=== PATIENT | male | born 1990 | race Caucasian/White ===

== ENCOUNTER → 2018-10-01 12:05 | Outpatient (CLI) | payer BC, SELFPAY ==
--- NOTE | 2018-10-01 | DI.US.S_ITS ---
PROCEDURE: US RENAL COMPLETE INDICATIONS: FREQUENT URINATION TECHNIQUE: Real-time scanning was performed of the kidneys and bladder, with image documentation. COMPARISON: None. FINDINGS: Kidneys: Kidneys are normal in size. Right kidney measures 12.1 cm long; left kidney measures 12.1 cm long. Right renal cortical thickness is 1.1 cm; left renal cortical thickness is 1.6 cm. Renal cortical echotexture is normal. No definite hydronephrosis or nephrolithiasis. No suspicious solid mass lesions. Bladder: Pre-void bladder volume is 540 mL. Post-void residual is 0 mL. Pre-void images demonstrate no intraluminal masses or stones. On pre-void images, neither of the ureteral jets are noted with color Doppler interrogation. (Of note, ureteral jets may not be detectable in up to 25% of cases due to insufficient differences in specific gravity between ureteral and bladder urine). Miscellaneous: No free pelvic fluid. IMPRESSION: No post void residual. Negative for hydronephrosis. No bladder abnormality is seen on these images. Dictated by: Bladimir Bee M.D. on 10/01/2018 at 12:10 Approved by: Bladimir Bee M.D. on 10/01/2018 at 12:11
== END ==
PROVIDERS: Visit Provider Family Medicine
DX: R35.0 Frequency of micturition (principal)
CPT/HCPCS: 76770

== ENCOUNTER → 2023-01-30 10:38 | Outpatient (CLI) | payer BC, SELFPAY ==
[2023-01-30 20:17] LABS: Alanine Aminotransferase 163 IU/L (<50); Albumin 4.3 g/dL (3.5-5.0); Albumin Globulin Ratio 2.2 (1.0-2.8); Alkaline Phosphatase 138 U/L (38-126); Aspartate Aminotransferase 111 IU/L (17-59); BUN Creatinine Ratio 20.8 (6-22); Bilirubin Total 0.5 mg/dL (0.2-1.3); Blood Urea Nitrogen 11 mg/dL (9-20); Calcium 8.7 mg/dL (8.4-10.2); Carbon Dioxide 31 mmol/L (22-32); Chloride 102 mmol/L (98-107); Estimated Glomerular Filt Rate > 60 mL/min (>60); Glucose 99 mg/dL (70-100); HEMOLYSIS < 15 (0-50); Sodium 139 mmol/L (137-145); Total Protein 6.3 g/dL (6.3-8.2)
[2023-01-30 20:23] LABS: Add Manual Diff / Slide Review NO; Basophils Absolute Auto 0 /uL (0-100); Basophils Percent Auto 0.5 % (0-2); Eosinophils Absolute Auto 0 /uL (0-450); Eosinophils Percent Auto 1.3 % (2-4); Hematocrit 40.8 % (41-53); Hemoglobin 14.4 g/dL (13.5-17.5); Lymphocytes Absolute Auto 700 /uL (1100-4500); Lymphocytes Percent Auto 19.3 % (25-40); Mean Corpuscular HGB Conc 35.4 % (30-36); Mean Corpuscular Hemoglobin 30.4 PG (26-34); Mean Corpuscular Volume 86.1 fL (80-100); Monocytes Absolute Auto 400 /uL (0-900); Monocytes Percent Auto 10.7 % (3-14); Neutrophils Absolute Auto 2400 /uL (1500-7000); Neutrophils Percent Auto 68.2 % (50-75); Platelet Count 203 X10^3/uL (150-400); Red Blood Cell Count 4.74 X10^6/uL (4.5-5.9); White Blood Cell Count 3.6 X10^3/uL (4.5-11.0)
[2023-01-30 20:48] LABS: Prostate Specific Antigen Scrn 0.249 ng/mL (0.1-4.0)
[2023-01-30 21:09] LABS: Appearance Urine UA CLEAR; Bilirubin Urine UA NEGATIVE (NEGATIVE); Color Urine UA YELLOW; Glucose Urine UA NEGATIVE (Negative); Ketones Urine UA NEGATIVE (NEGATIVE); Leukocyte Esterase Urine UA NEGATIVE (NEGATIVE); Nitrite Urine UA NEGATIVE (Negative); Occult Blood Urine UA NEGATIVE (Negative); Protein Urine UA NEGATIVE (Negative); Specific Gravity Urine UA <=1.005 (1.000-1.035); Urobilinogen Urine UA 0.2 E.U./dL (0.2); pH Urine UA 6.5 (4.5-8.0)
== END ==
PROVIDERS: PCP Family Medicine; Visit Provider Family Medicine
DX: D72.819 Decreased white blood cell count, unspecified (principal); R63.1 Polydipsia; R74.8 Abnormal levels of other serum enzymes; Z12.5 Encounter for screening for malignant neoplasm of prostate
CPT/HCPCS: 80053; 81003; 85025; G0103

== ENCOUNTER → 2023-05-07 11:31 | Outpatient (CLI) | payer BC, SELFPAY ==
[2023-05-07 19:17] LABS: Add Manual Diff / Slide Review NO; Basophils Absolute Auto 0 /uL (0-100); Basophils Percent Auto 0.7 % (0-2); Eosinophils Absolute Auto 100 /uL (0-450); Eosinophils Percent Auto 2.1 % (2-4); Hematocrit 40.8 % (41-53); Lymphocytes Absolute Auto 900 /uL (1100-4500); Lymphocytes Percent Auto 23.1 % (25-40); Mean Corpuscular HGB Conc 34.4 % (30-36); Mean Corpuscular Hemoglobin 30.4 PG (26-34); Mean Corpuscular Volume 88.6 fL (80-100); Monocytes Absolute Auto 500 /uL (0-900); Monocytes Percent Auto 12.5 % (3-14); Neutrophils Absolute Auto 2300 /uL (1500-7000); Neutrophils Percent Auto 61.6 % (50-75); Platelet Count 191 X10^3/uL (150-400); Red Blood Cell Count 4.61 X10^6/uL (4.5-5.9); Red Cell Distribution Width 12.9 % (11.6-14.8); White Blood Cell Count 3.7 X10^3/uL (4.5-11.0)
[2023-05-07 19:34] LABS: HEMOLYSIS < 15 (0-50); Iron 64 ug/dL (49-181)
[2023-05-07 19:36] LABS: Alanine Aminotransferase 172 IU/L (<50); Albumin 4.3 g/dL (3.5-5.0); Albumin Globulin Ratio 2.3 (1.0-2.8); Alkaline Phosphatase 95 U/L (38-126); Aspartate Aminotransferase 109 IU/L (17-59); Bilirubin Total 0.4 mg/dL (0.2-1.3); Bilirubin Unconjugated 0.3 mg/dL (0.0-1.1); Globulin 1.9 g/dL (1.7-4.1); HEMOLYSIS < 15 (0-50); Total Protein 6.2 g/dL (6.3-8.2)
[2023-05-07 19:46] LABS: Percent Iron Saturation 18 % (20-50); Total Iron Binding Capacity 356 ug/dL (261-462); Transferrin 253 mg/dL (206-381)
[2023-05-07 20:06] LABS: Thyroid Stimulating Hormone 1.61 uIU/mL (0.47-4.68)
[2023-05-07 20:29] LABS: Vitamin B12 > 1000 pg/mL (239-931)
[2023-05-08 16:47] LABS: Hepatitis B Surface Antigen NEGATIVE s/c (NEGATIVE)
[2023-05-08 17:05] LABS: HIV 1 & 2 Ab/Ag 4th Gen Combo NEGATIVE (NEGATIVE); Hep C Virus Ab w/Reflex Quant NEGATIVE s/c (NEGATIVE)
[2023-05-13 17:58] LABS: ANA Screen, IFA Negative (.)
== END ==
PROVIDERS: PCP Family Medicine; Visit Provider Family Medicine
DX: D64.9 Anemia, unspecified (principal); D70.9 Neutropenia, unspecified; R74.8 Abnormal levels of other serum enzymes; D72.819 Decreased white blood cell count, unspecified
CPT/HCPCS: 80076; 82607; 83540; 83550; 84443; 85025; 86038; 86803; 87340; 87389

== ENCOUNTER → 2023-06-18 14:21 | Outpatient (CLI) | payer BC, SELFPAY ==
[2023-06-18 20:42] LABS: Erythrocyte Sedimentation Rate 1 MM/HR (0-15)
[2023-06-18 21:07] LABS: TSH w/ Reflex to FT4 1.88 uIU/mL (0.47-4.68)
[2023-06-19 15:54] LABS: Hepatitis B Surface Antigen NEGATIVE s/c (NEGATIVE)
[2023-06-19 16:18] LABS: HIV 1 & 2 Ab/Ag 4th Gen Combo NEGATIVE (NEGATIVE); Hep C Virus Ab w/Reflex Quant NEGATIVE s/c (NEGATIVE)
[2023-06-22 17:39] LABS: ANA Screen, IFA Negative (.)
== END ==
PROVIDERS: PCP Family Medicine; Visit Provider Family Medicine
DX: D72.810 Lymphocytopenia (principal); R74.8 Abnormal levels of other serum enzymes; F10.90 Alcohol use, unspecified, uncomplicated
CPT/HCPCS: 84443; 85651; 86038; 86803; 87340; 87389

== ENCOUNTER → 2023-06-26 11:17 | Outpatient (CLI) | payer BC, SELFPAY ==
--- NOTE | 2023-06-26 11:17 | DI.US.S_ITS ---
PROCEDURE: US ABDOMEN LIMITED INDICATIONS: ELEVATED LIVER ENZYMES TECHNIQUE: Real-time scanning was performed of the abdominal and retroperitoneal organs, with image documentation. COMPARISON: US, US RENAL COMPLETE, 10/01/2018, 12:29. FINDINGS: Liver: Liver is prominent in size and homogeneous in echotexture. Gallbladder: Gallbladder is distended. No gallstones. No gallbladder wall thickening, pericholecystic fluid or sonographic Diallo's sign. Biliary ducts: Intrahepatic bile ducts are non-dilated. Extrahepatic bile duct caliber measures 3.4 mm. Normal is 6-7 mm or less in diameter, or 10 mm or less post-cholecystectomy. Pancreas: Visualized portions of the pancreas are sonographically normal. Spleen: Spleen is normal in size and homogeneous in echotexture. Miscellaneous: No free abdominal fluid. IMPRESSION: 1. Mild hepatomegaly. 2. Hydropic gallbladder. No gallstones. Dictated by: Calvin Martínez M.D. on 06/26/2023 at 13:13 Approved by: Calvin Martínez M.D. on 06/26/2023 at 13:24
== END ==
PROVIDERS: PCP Family Medicine; Referring Provider Family Medicine; Visit Provider Family Medicine
DX: D72.810 Lymphocytopenia (principal); F10.90 Alcohol use, unspecified, uncomplicated; R74.8 Abnormal levels of other serum enzymes; R16.0 Hepatomegaly, not elsewhere classified; K82.1 Hydrops of gallbladder
CPT/HCPCS: 76705

== ENCOUNTER → 2023-07-23 13:23 | Outpatient (CLI) | payer BC, SELFPAY ==
[2023-07-23 19:15] LABS: Add Manual Diff / Slide Review NO; Basophils Absolute Auto 0 /uL (0-100); Basophils Percent Auto 0.7 % (0-2); Eosinophils Absolute Auto 100 /uL (0-450); Eosinophils Percent Auto 1.9 % (2-4); Hematocrit 42.4 % (41-53); Hemoglobin 14.6 g/dL (13.5-17.5); Lymphocytes Absolute Auto 1000 /uL (1100-4500); Mean Corpuscular HGB Conc 34.4 % (30-36); Mean Corpuscular Hemoglobin 30.1 PG (26-34); Mean Corpuscular Volume 87.5 fL (80-100); Monocytes Absolute Auto 500 /uL (0-900); Monocytes Percent Auto 12.8 % (3-14); Neutrophils Absolute Auto 2500 /uL (1500-7000); Neutrophils Percent Auto 60.6 % (50-75); Platelet Count 190 X10^3/uL (150-400); Red Blood Cell Count 4.85 X10^6/uL (4.5-5.9); Red Cell Distribution Width 12.7 % (11.6-14.8); White Blood Cell Count 4.1 X10^3/uL (4.5-11.0)
[2023-07-23 19:33] LABS: Erythrocyte Sedimentation Rate 1 MM/HR (0-15)
[2023-07-23 19:37] LABS: Alanine Aminotransferase 73 IU/L (<50); Albumin 4.5 g/dL (3.5-5.0); Alkaline Phosphatase 82 U/L (38-126); Aspartate Aminotransferase 89 IU/L (17-59); Bilirubin Total 0.4 mg/dL (0.2-1.3); Bilirubin Unconjugated 0.3 mg/dL (0.0-1.1); C-Reactive Protein Quant < 0.5 mg/dL (<1.0); Gamma Glutamyl Transpeptidase 15 U/L (15-73); Globulin 2.3 g/dL (1.7-4.1); HEMOLYSIS 16 (0-50); Total Protein 6.8 g/dL (6.3-8.2)
== END ==
PROVIDERS: PCP Family Medicine; Visit Provider Family Medicine
DX: R74.8 Abnormal levels of other serum enzymes (principal); D72.810 Lymphocytopenia; D64.9 Anemia, unspecified
CPT/HCPCS: 80076; 82977; 85025; 85651; 86140